=== PATIENT | female | born 1995 | race Hispanic/Latino ===

== ENCOUNTER → 2023-03-07 | Outpatient (CLI) | payer OTHER ==
[2023-03-07 12:16] LABS: BASOPHILS # (AUTO) 0.04 K/uL (0.00-0.20); BASOPHILS % (AUTO) 0.5 % (0.0-5.0); EOSINOPHILS % (AUTO) 3.9 % (0.0-8.0); HEMATOCRIT 41.4 % (36-48); IMMATURE GRANULOCYTE ABSOLUTE 0.01 K/uL (0-1); LYMPHOCYTES # (AUTO) 3.3 K/uL (1.0-4.8); MEAN CORPUSCULAR HEMOGLOBIN 32.3 pg (27.0-33.0); MEAN CORPUSCULAR HGB CONC 33.8 g/dL (32.0-36.0); MEAN CORPUSCULAR VOLUME 95.6 fL (79-99); MONOCYTES # (AUTO) 0.4 K/uL (0.1-1.0); MONOCYTES % (AUTO) 5.8 % (3.0-13.0); NEUTROPHILS # (AUTO) 3.6 K/uL (1.8-7.7); NEUTROPHILS % (AUTO) 46.7 % (40.0-77.0); PLATELET COUNT (AUTO) 236 K/uL (130-400); RED BLOOD CELL COUNT(AUTO) 4.33 MIL/uL (4.00-5.50); RED CELL DISTRIBUTION WIDTH 11.9 % (11.0-15.5); WHITE BLOOD COUNT (AUTO) 7.6 K/uL (4.8-10.8)
[2023-03-07 12:19] LABS: APPEARANCE,URINE CLEAR (CLEAR); BILIRUBIN,URINE NEGATIVE (NEGATIVE); COLOR,URINE LIGHT-YELLOW (YELLOW); GLUCOSE, URINE (UA) NEGATIVE (NEGATIVE); KETONES,URINE NEGATIVE (NEGATIVE); LEUKOCYTE ESTERASE ,URINE 75 Leu/uL (NEGATIVE); NITRATE,URINE NEGATIVE (NEGATIVE); OCCULT BLOOD,URINE NEGATIVE (NEGATIVE); PH,URINE 5.5 (5.0-8.0); PROTEIN,URINE NEGATIVE (NEGATIVE); UROBILINOGEN,URINE 0.2 mg/dL (0.2-1.0)
[2023-03-07 12:21] LABS: ADD UA MICROSCOPIC YES; RBC,URINE 0-1 /HPF (0-1); SQUAMOUS EPITHELIAL CELL,UR RARE /HPF (0-2)
[2023-03-07 12:23] LABS: HEMOGLOBIN A1C 5.2 % (4.0-6.0)
[2023-03-07 12:50] LABS: ALBUMIN 3.9 g/dL (3.5-5.0); BILIRUBIN,TOTAL 0.4 mg/dL (0.2-1.0); CREATININE 0.8 mg/dL (0.5-1.5); POTASSIUM 3.8 mmol/L (3.5-5.1); THYROID STIMULATING HORMONE 2.71 uIU/mL (0.36-3.74); TOTAL PROTEIN, SERUM 8.1 g/dL (6.0-8.3)
[2023-03-07 13:36] LABS: ERYTHROCYTE SEDIMENTATION RATE 24 MM/HR (0-20)
== END | disposition home or self-care (01) ==
LOC: LAB 11:06
PROVIDERS: ATTEND Nurse Practitioner Family
DX: N92.6 Irregular menstruation, unspecified (principal); E03.9 Hypothyroidism, unspecified; K76.0 Fatty (change of) liver, not elsewhere classified; E55.9 Vitamin D deficiency, unspecified; E66.01 Morbid (severe) obesity due to excess calories; R73.09 Other abnormal glucose; E78.00 Pure hypercholesterolemia, unspecified
CPT/HCPCS: 36415; 80053; 80061; 81001; 82306; 83036; 83525; 84439; 84443; 84481; 85025; 85651; 87088

== ENCOUNTER → 2023-11-04 | Outpatient (CLI) | payer OTHER ==
[2023-11-04 08:26] LABS: BASOPHILS # (AUTO) 0.03 K/uL (0.00-0.20); BASOPHILS % (AUTO) 0.3 % (0.0-5.0); EOSINOPHILS # (AUTO) 0.17 K/uL (0.00-0.70); EOSINOPHILS % (AUTO) 1.7 % (0.0-8.0); HEMATOCRIT 41.7 % (36-48); IMMATURE GRANULOCYTE ABSOLUTE 0.02 K/uL (0-1); LYMPHOCYTES # (AUTO) 3.7 K/uL (1.0-4.8); LYMPHOCYTES % (AUTO) 37.9 % (21.0-51.0); MEAN CORPUSCULAR HGB CONC 34.8 g/dL (32.0-36.0); MONOCYTES # (AUTO) 0.7 K/uL (0.1-1.0); MONOCYTES % (AUTO) 6.9 % (3.0-13.0); NEUTROPHILS # (AUTO) 5.2 K/uL (1.8-7.7); PLATELET COUNT (AUTO) 237 K/uL (130-400); RED BLOOD CELL COUNT(AUTO) 4.39 MIL/uL (4.00-5.50); RED CELL DISTRIBUTION WIDTH 12.1 % (11.0-15.5); WHITE BLOOD COUNT (AUTO) 9.7 K/uL (4.8-10.8)
[2023-11-04 08:30] LABS: APPEARANCE,URINE SL CLOUDY (CLEAR); BILIRUBIN,URINE NEGATIVE (NEGATIVE); COLOR,URINE YELLOW (YELLOW); GLUCOSE, URINE (UA) NEGATIVE (NEGATIVE); KETONES,URINE NEGATIVE (NEGATIVE); LEUKOCYTE ESTERASE ,URINE MODERATE Leu/uL (NEGATIVE); NITRATE,URINE NEGATIVE (NEGATIVE); OCCULT BLOOD,URINE TRACE-INTACT (NEGATIVE); PROTEIN,URINE NEGATIVE (NEGATIVE); UROBILINOGEN,URINE 0.2 mg/dL (0.2-1.0)
[2023-11-04 08:33] LABS: ADD UA MICROSCOPIC YES
[2023-11-04 08:59] LABS: ALBUMIN 3.9 g/dL (3.5-5.0); BILIRUBIN,TOTAL 0.4 mg/dL (0.2-1.0); CREATININE 0.9 mg/dL (0.5-1.0); POTASSIUM 3.8 mmol/L (3.5-5.1); THYROID STIMULATING HORMONE 3.75 uIU/mL (0.36-3.74); TOTAL PROTEIN, SERUM 8.3 g/dL (6.0-8.3)
[2023-11-04 09:04] LABS: BACTERIA,URINE Few /HPF (None Seen); SQUAMOUS EPITHELIAL CELL,UR 0-2 /HPF (0-2)
[2023-11-04 10:02] LABS: ERYTHROCYTE SEDIMENTATION RATE 17 MM/HR (0-20)
== END | disposition home or self-care (01) ==
LOC: LAB 07:38
PROVIDERS: ATTEND Nurse Practitioner Family
DX: E78.00 Pure hypercholesterolemia, unspecified (principal); E55.9 Vitamin D deficiency, unspecified; E03.9 Hypothyroidism, unspecified; R53.82 Chronic fatigue, unspecified; R63.5 Abnormal weight gain
CPT/HCPCS: 36415; 80053; 80061; 81001; 82306; 84439; 84443; 84481; 85025; 85651; 87088

== ENCOUNTER → 2024-04-09 | Outpatient (CLI) | payer OTHER ==
[2024-04-09 09:17] LABS: BASOPHILS # (AUTO) 0.03 K/uL (0.00-0.20); BASOPHILS % (AUTO) 0.4 % (0.0-5.0); EOSINOPHILS # (AUTO) 0.18 K/uL (0.00-0.70); EOSINOPHILS % (AUTO) 2.4 % (0.0-8.0); HEMATOCRIT 41.3 % (36-48); IMMATURE GRANULOCYTE ABSOLUTE 0.01 K/uL (0-1); LYMPHOCYTES # (AUTO) 3.1 K/uL (1.0-4.8); LYMPHOCYTES % (AUTO) 40.6 % (21.0-51.0); MEAN CORPUSCULAR HGB CONC 33.4 g/dL (32.0-36.0); MEAN CORPUSCULAR VOLUME 95.8 fL (79-99); MONOCYTES # (AUTO) 0.4 K/uL (0.1-1.0); MONOCYTES % (AUTO) 5.8 % (3.0-13.0); NEUTROPHILS # (AUTO) 3.8 K/uL (1.8-7.7); NEUTROPHILS % (AUTO) 50.7 % (40.0-77.0); PLATELET COUNT (AUTO) 266 K/uL (130-400); RED BLOOD CELL COUNT(AUTO) 4.31 MIL/uL (4.00-5.50); RED CELL DISTRIBUTION WIDTH 11.8 % (11.0-15.5); WHITE BLOOD COUNT (AUTO) 7.5 K/uL (4.8-10.8)
[2024-04-09 09:45] LABS: BILIRUBIN,TOTAL 0.4 mg/dL (0.2-1.0); CREATININE 0.9 mg/dL (0.5-1.0); THYROID STIMULATING HORMONE 1.5 uIU/mL (0.36-3.74); TOTAL PROTEIN, SERUM 8.3 g/dL (6.0-8.3)
[2024-04-09 09:59] LABS: APPEARANCE,URINE CLOUDY (CLEAR); BILIRUBIN,URINE NEGATIVE (NEGATIVE); COLOR,URINE YELLOW (YELLOW); GLUCOSE, URINE (UA) NEGATIVE (NEGATIVE); KETONES,URINE NEGATIVE (NEGATIVE); LEUKOCYTE ESTERASE ,URINE 250 Leu/uL (NEGATIVE); NITRATE,URINE NEGATIVE (NEGATIVE); OCCULT BLOOD,URINE NEGATIVE (NEGATIVE); PH,URINE 5.5 (5.0-8.0); PROTEIN,URINE 10 mg/dL (NEGATIVE); UROBILINOGEN,URINE 0.2 mg/dL (0.2-1.0)
[2024-04-09 10:00] LABS: ADD UA MICROSCOPIC YES
[2024-04-09 10:02] LABS: BACTERIA,URINE FEW /HPF (None Seen); MUCUS,URINE RARE LPF (None Seen); SQUAMOUS EPITHELIAL CELL,UR FEW /HPF (0-2)
[2024-04-09 10:19] LABS: ERYTHROCYTE SEDIMENTATION RATE 30 MM/HR (0-20)
== END | disposition home or self-care (01) ==
LOC: LAB 08:32
PROVIDERS: ATTEND Nurse Practitioner Family
DX: E78.00 Pure hypercholesterolemia, unspecified (principal); K76.0 Fatty (change of) liver, not elsewhere classified; E55.9 Vitamin D deficiency, unspecified; R53.83 Other fatigue; R53.82 Chronic fatigue, unspecified; E03.9 Hypothyroidism, unspecified; E66.01 Morbid (severe) obesity due to excess calories
CPT/HCPCS: 36415; 80053; 80061; 81001; 82306; 84439; 84443; 84481; 85025; 85651; 87086

== ENCOUNTER 2024-06-23 07:44 | Emergency (ER) | payer OTHER ==
[~2024-06-23] VITALS: Ht 165.1 cm; Wt 94.8 kg
--- NOTE | 2024-06-23 07:49 | NUR ---
PT JUST NOW PLACED IN MY ED BED 18
--- NOTE | 2024-06-23 08:14 | NUR ---
SIDE NOTE: PT WAS STARTED ON CIPRO YESTERDAY AFTER HAVING BEEN TO AN URGENT CARE CLINIC FOR THE SAME REASON. WHICH SHE STARTED THEM YESTERDAY. SHE STATES SHE HAS ONLY HAD SOME WATER AND CRACKERS OVER THE LAST FEW DAYS D/T ANY FOODS MAKING HER NAUSEATED WHERE SHE HAS TO TAKE HER ZOFRAN. SHE SAYS SHE HAS MAXED OUT OF DOSE FOR IMMODIUM AT THIS TIME.
[2024-06-23] MEDS: 0.9%NACL 1000ML 1,000 ML IV ONE (08:23)
--- NOTE | 2024-06-23 08:31 | ERN ---
ED Note History of Present Illness Stated Complaint: ABD PAIN Chief Complaint: Abdominal Pain Time Seen by MD: 08:11 Dictation: This generally healthy 28-year-old female presents in the emergency department with three days of generalized abdominal pain, nausea, vomiting, and constant watery diarrhea contaminated by blood associated with fevers to 103. The patient is unaware of eating any bad food and no one else in the family is sick. She works here and I will E[employer] but has not been exposed to any gastrointestinal illnesses that she is aware of. She reports a crampy type of abdominal pain present in both the upper and lower abdomen that does not lateralized. She reports 3-5 episodes of vomiting a day with some decreased urine output and poor p.o. intake as a result. She has been taking alternating Tylenol and ibuprofen, last dose of Tylenol was at 6:00 a.m. this morning for temperature of 103. She visited an urgent care yesterday and was prescribed ciprofloxacin. She took her 1st dose at 11:00 p.m. last night. She is currently on her menstrual period. She has ondansetron and Imodium at home which she is maxed out on without relief. She believes that she may have sleep apnea but has never had the study. She has no other major medical illnesses. She lives at home with her baby and . She does not smoke drink use recreational drugs Allergies: Coded Allergies: Penicillins (Unverified Allergy, Unknown, 06/23/24) Past Medical History Past Medical History: No Pertinent History Surgical History: None LMP: Jun 23, 2024 : 1 Para: 1 Aborts: 0 Review of System Dictation All pertinent systems reviewed, negative except as documented in the HPI The ROS is obtained from patient GENERAL/CONSTITUTIONAL: Negative except as documented in HPI. ENT: Negative except as documented in HPI. CARDIOVASCULAR: Negative except as documented in HPI. RESPIRATORY: Negative except as documented in HPI. GASTROINTESTINAL: Negative except as documented in HPI. GENITOURINARY: Negative except as documented in HPI. MUSCULOSKELETAL: Negative except as documented in HPI. SKIN: Negative except as documented in HPI. NEUROLOGIC: Negative except as documented in HPI. Initial Vital Sign VS Vital Signs Date Time Temp Pulse Resp B/P (MAP) Pulse Ox O2 Delivery O2 Flow Rate FiO2 06/23/24 07:45 98.4 107 18 97/61 96 Room Air Physical Exam Dictation VITAL SIGNS: note is made of triage vital signs CONSTITUTIONAL: This is a comfortable patient who is awake, alert, and appropriately interactive. She does not appear septic or toxic HEAD: Normocephalic, Atraumatic. EYES: Periorbital areas with no swelling, redness, or edema. Lids and lashes are normal. Conjunctival injection is absent. Sclera anicteric. Pupils equal, round, reactive to light. ENT: No nasal discharge noted. Posterior pharynx is without exudate, redness, swelling, masses, or evidence of obstruction. Uvula midline. Mucous membranes moist. NECK: Trachea midline, no masses palpated, and no cervical lymphadenopathy. No swelling. Supple, full range of motion without nuchal rigidity. No vertebral point tenderness. No meningismus. CHEST/AXILLA: Normal chest wall appearance and motion. No tenderness. No crepitus. CV: Normal rate, regular rhythm. No murmur. No edema. RESPIRATORY:Respiratory rate is normal. Bilateral equal breath sounds with good airflow. Normal breath sounds are noted. No rales, rhonchi or wheezes noted. No increased work of breathing, no retractions. ABDOMEN: Inspection normal. No distention is appreciated. Bowel sounds are normal. No mass or organomegaly is appreciated. There is mild generalized abdominal discomfort on palpation no localizing tenderness. No rebound. No rigidity. No voluntary or involuntary guarding. BACK: Inspection is normal. No midline tenderness is appreciated. The patient appears comfortable when moving. : No CVA tenderness or bladder tenderness. SKIN: Warm, dry, with normal turgor. Capillary refill less than 3 seconds. Normal color.No rash. No cellulitis or abscess. No evidence of acute injury. MS/Extremity: There is no calf tenderness. Baseline range of motion is noted in all 4 extremities. There are no deformities. NEURO: Awake and alert, lucid. Facies symmetric and speech is clear. Motor strength 5/5 in all extremities. Sensory grossly intact. PSYCH: Patient is appropriately attentive and cooperative without evidence of hallucination. Results (Laboratory/Radiology) Laboratory/Radiology Laboratory Tests Test 06/23/24 07:55 06/23/24 08:08 White Blood Count 9.5 K/uL (4.8-10.8) Red Blood Count 3.94 MIL/uL (4.00-5.50) L Hemoglobin 12.7 g/dL (12.0-16.0) Hematocrit 36.8 % (36-48) Mean Corpuscular Volume 93.4 fL (79-99) Mean Corpuscular Hemoglobin 32.2 pg (27.0-33.0) Mean Corpuscular Hemoglobin Concent 34.5 g/dL (32.0-36.0) Red Cell Distribution Width 12.0 % (11.0-15.5) Platelet Count 173 K/uL (130-400) Mean Platelet Volume 10.8 fL (7.5-10.5) H Immature Granulocyte % (Auto) 0.3 % (0-1) Neutrophils (%) (Auto) 85.1 % (40.0-77.0) H Lymphocytes (%) (Auto) 8.9 % (21.0-51.0) L Monocytes (%) (Auto) 5.0 % (3.0-13.0) Eosinophils (%) (Auto) 0.5 % (0.0-8.0) Basophils (%) (Auto) 0.2 % (0.0-5.0) Neutrophils # (Auto) 8.1 K/uL (1.8-7.7) H Lymphocytes # (Auto) 0.8 K/uL (1.0-4.8) L Monocytes # (Auto) 0.5 K/uL (0.1-1.0) Eosinophils # (Auto) 0.05 K/uL (0.00-0.70) Basophils # (Auto) 0.02 K/uL (0.00-0.20) Absolute Immature Granulocyte (auto 0.03 K/uL (0-1) Nucleated Red Blood Cells 0.0 % (0.0-0.19) White Cell Morphology Comment See comments Sodium Level 137 mmol/L (136-145) Potassium Level 3.0 mmol/L (3.5-5.1) *L Chloride Level 104 mmol/L (101-111) Carbon Dioxide Level 23 mmol/L (21-32) Blood Urea Nitrogen 11 mg/dL (7-18) Creatinine 1.2 mg/dL (0.5-1.0) H Glomerular Filtration Rate Calc 63 mL/min (>90) Random Glucose 121 mg/dL (70-105) H Total Calcium 8.1 mg/dL (8.5-10.1) L Total Bilirubin 0.4 mg/dL (0.2-1.0) Direct Bilirubin 0.1 mg/dL (0.0-0.3) Aspartate Amino Transf (AST/SGOT) 27 U/L (10-37) Alanine Aminotransferase (ALT/SGPT) 27 U/L (12-78) Alkaline Phosphatase 59 U/L (50-136) Total Protein 7.1 g/dL (6.0-8.3) Albumin 3.2 g/dL (3.5-5.0) L Lipase 16 U/L (16-77) Urine Color LIGHT-YELLOW (YELLOW) Urine Appearance CLEAR (CLEAR) Urine pH 6.0 (5.0-8.0) Urine Specific [place] 1.015 (1.001-1.031) Urine Protein 30 mg/dL (NEGATIVE) H Urine Glucose (UA) NEGATIVE mg/dL (NEGATIVE) Urine Ketones NEGATIVE mg/dL (NEGATIVE) Urine Occult Blood MODERATE (NEGATIVE) H Urine Nitrate NEGATIVE (NEGATIVE) Urine Bilirubin NEGATIVE mg/dL (NEGATIVE) Urine Urobilinogen 0.2 mg/dL (0.2-1.0) Urine Leukocyte Esterase NEGATIVE [place]/uL Urine RBC 0-1 /HPF (0-1) Urine WBC 2-5 /HPF (0-1) H Urine Squamous Epithelial Cells FEW /HPF (0-2) Urine Bacteria RARE /HPF (None Seen) Urine HCG, Qualitative NEGATIVE (NEGATIVE) ED Course ED Course Orders Procedure Category Date Status Time Cbc With Differential LAB 06/23/24 Complete 08:11 Basic Metabolic Panel LAB 06/23/24 Complete 08:11 Urinalysis Profile LAB 06/23/24 Complete 08:11 ,Urine Test LAB 06/23/24 Complete 08:11 Stool Culture LACIE 06/23/24 Logged 08:17 Occult Blood Stool LAB 06/23/24 Logged Single Only 08:17 Stool Panel Gi By Pcr LAB 06/23/24 Logged 08:17 Fecal Wbc LAB 06/23/24 Logged (Lactoferrin) 08:17 0.9%Nacl 1000ml (Ns PHA 06/23/24 Complete 1000ml) 08:30 Hepatic Function Panel LAB 06/23/24 Complete 08:11 Lipase LAB 06/23/24 Complete 08:11 Potassium Bicarb/Cit PHA 06/23/24 Complete Ac 25meq (K-Lyte Ta 09:30 Current Medications Medications (Trade) Dose Ordered Sig/Tita Route PRN Reason Start Time Stop Time Status Last Admin Dose Admin Potassium Bicarbonate (K-Lyte Tablet Eff 25 Meq Tablet.eff) 25 meq ONCE ONCE PO 06/23/24 09:30 12 09:31 DC 06/23/24 09:23 Sodium Chloride 1,000 ml @ 0 mls/hr ONCE ONCE IV 06/23/24 08:30 06/23/24 08:31 DC 06/23/24 08:23 Vital Signs Date Time Temp Pulse Resp B/P (MAP) Pulse Ox O2 Delivery O2 Flow Rate FiO2 06/23/24 07:45 98.4 107 18 97/61 96 Room Air Medical Decision Making MDM INITIAL IMPRESSION Initial history and physical concerning for gastroenteritis, colitis, enteritis, food poisoning. Clinically the patient does not appear septic or toxic. She has mild dehydration. Her abdominal exam is benign Contributing medical problems: None I have reviewed the triage nursing notes and vital signs. The patient is afebrile with acceptable oxygen saturation, heart rate and blood pressure. Initial plan: IV hydration, laboratory evaluation DATA REVIEW I have reviewed additional NN, repeat VS, and monitoring where indicated. Heart rate, blood pressure, and O2 saturation are acceptable. Birch diagnostic results: Patient did not have diarrhea in the emergency department. White count is normal with a neutrophil predominance. BUN and creatinine are 11 and 1.2 in the potassium is 3.0. LFTs and lipase are normal. Urine showed proteinuria without evidence of infection. She is on her menses and there was blood in the urine. Other independent historian: none Review of external data: None. ED COURSE Interventions: Patient received IV fluids in the ED. Potassium was repleted Reassessment: The patient remained stable and feels comfortable going home. DISPOSITION Final diagnostic impression: Gastroenteritis, hypokalemia, hypovolemia I discussed my findings, clinical impression and treatment recommendations with the patient. I have reviewed the social factors contributing to the patient's presentation and disposition planning. My final plan for disposition was made based upon clinical findings, response to treatment and discussion with the patient regarding management options. Hospitalization is not indicated due to low risk of short term progression, complication, morbidity or mortality related to the current diagnosis At the time of discharge, the vital signs are within acceptable limits. Repeat examination: No significant new changes. Patient has been able to take oral liquids. The discharge treatment plan includes Lomotil, to continue the Cipro which she has at home and the ondansetron. We discussed general principles of dehydration Incidental findings discussed: none Questions were invited and answered in layman's terms. I have emphasized my follow-up recommendations and reviewed ED return precautions. I have answered any questions in layman's terms. The patient understands that they will have to arrange for out-patient follow-up for recheck of today's condition. The patient is stable and appropriate for discharge from the ED. This dictation was prepared using [employer] voice recognition software. Occasional voice recognition errors may occur. When identified, these errors have been corrected. While every attempt is made to correct errors during dictation, errors may still exist. DX & DISP Disposition: Discharge Decision to Admit Date: Jun 23, 2024 Decision to Admit Time: 11:24 Departure Impression: Primary Impression: Gastroenteritis Additional Impressions: Hypokalemia, Dehydration Condition: Stable Scripts Diphenoxylate HCl/Atropine (Lomotil Tablet) 2.5 Mg-0.025 Mg Tablet 1 TAB PO QIDP PRN for DIARRHEA for 10 Days, #30 TAB 0 Refills Prov: CINDY BOWERS MD 06/23/24 Additional Instructions: Increase fluid intake while you are sick. Continue the ondansetron on an as- needed basis. Take the ciprofloxacin one tablet 2 times a day until it is gone. Use the Lomotil as directed on the packaging. Avoid solids for the next 24 hours and then initiate a bland diet such as the brat diet gradually. Include bananas once you start to eat because your potassium has gotten a little low. Return to the emergency department for generalized weakness, persistent vomiting or other worsening Referrals: LUNA CHIRINOS (PCP) Time of Disposition: 11:26 CINDY BOWERS MD Jun 23, 2024 08:31
--- NOTE | 2024-06-23 08:39 | NUR ---
A "CAP" WAS PROVIDED TO THE PT FOR WHEN SHE FEELS SHE MAY NEED TO HAVE A STOOL SO THAT WE MAY COLLECT A SAMPLE AND SEND TO LAB
[2024-06-23 08:46] LABS: APPEARANCE,URINE CLEAR (CLEAR); BILIRUBIN,URINE NEGATIVE (NEGATIVE); COLOR,URINE LIGHT-YELLOW (YELLOW); GLUCOSE, URINE (UA) NEGATIVE (NEGATIVE); KETONES,URINE NEGATIVE (NEGATIVE); LEUKOCYTE ESTERASE ,URINE NEGATIVE Leu/uL (NEGATIVE); NITRATE,URINE NEGATIVE (NEGATIVE); OCCULT BLOOD,URINE MODERATE (NEGATIVE); PROTEIN,URINE 30 mg/dL (NEGATIVE); UROBILINOGEN,URINE 0.2 mg/dL (0.2-1.0)
[2024-06-23 08:58] LABS: BASOPHILS # (AUTO) 0.02 K/uL (0.00-0.20); BASOPHILS % (AUTO) 0.2 % (0.0-5.0); EOSINOPHILS # (AUTO) 0.05 K/uL (0.00-0.70); EOSINOPHILS % (AUTO) 0.5 % (0.0-8.0); HEMATOCRIT 36.8 % (36-48); IMMATURE GRANULOCYTE ABSOLUTE 0.03 K/uL (0-1); LYMPHOCYTES # (AUTO) 0.8 K/uL (1.0-4.8); LYMPHOCYTES % (AUTO) 8.9 % (21.0-51.0); MEAN CORPUSCULAR HEMOGLOBIN 32.2 pg (27.0-33.0); MEAN CORPUSCULAR HGB CONC 34.5 g/dL (32.0-36.0); MEAN CORPUSCULAR VOLUME 93.4 fL (79-99); MONOCYTES # (AUTO) 0.5 K/uL (0.1-1.0); NEUTROPHILS # (AUTO) 8.1 K/uL (1.8-7.7); NEUTROPHILS % (AUTO) 85.1 % (40.0-77.0); PLATELET COUNT (AUTO) 173 K/uL (130-400); RED BLOOD CELL COUNT(AUTO) 3.94 MIL/uL (4.00-5.50); WHITE BLOOD COUNT (AUTO) 9.5 K/uL (4.8-10.8)
[2024-06-23 09:04] LABS: ADD UA MICROSCOPIC YES
[2024-06-23 09:06] LABS: BACTERIA,URINE RARE /HPF (None Seen); MUCUS,URINE RARE LPF (None Seen); RBC,URINE 0-1 /HPF (0-1); SQUAMOUS EPITHELIAL CELL,UR FEW /HPF (0-2)
[2024-06-23 09:14] LABS: ALBUMIN 3.2 g/dL (3.5-5.0); BILIRUBIN,DIRECT 0.1 mg/dL (0.0-0.3); BILIRUBIN,TOTAL 0.4 mg/dL (0.2-1.0); CREATININE 1.2 mg/dL (0.5-1.0); TOTAL PROTEIN, SERUM 7.1 g/dL (6.0-8.3)
[2024-06-23] MEDS: PoTASSium BIcarbonate/CIT AC 25 MEQ TABLET.EFF PO ONE (09:23)
--- NOTE | 2024-06-23 11:11 | NUR ---
PT OOB TO BR
[2024-06-23] MEDS ORDERED: DIPH1TAB PO (11:25)
[2024-06-23 11:59] VITALS: BP 93/57; PULSE 78; RESP 17; TEMP 98.6; O2SAT 100
== END 2024-06-23 11:51 | disposition home or self-care (01) ==
LOC: EDH 07:44
DX: K52.9 Noninfective gastroenteritis and colitis, unspecified (principal); E87.6 Hypokalemia; E86.0 Dehydration; E86.1 Hypovolemia; R11.2 Nausea with vomiting, unspecified; Z88.0 Allergy status to penicillin
CPT/HCPCS: 99283; 96360; 96361; 80076; 80048; 83690; 85025; 81001; 81025; 36415; J7030